=== PATIENT | female | born 1965 | race Caucasian/White ===

== ENCOUNTER 2016-10-21 12:15 | Emergency (ER) | payer SELFPAY ==
[~2016-10-21] VITALS: Ht 170.2 cm; Wt 76.2 kg
[~2016-10-21 12:15] MED LIST: LAMO100T PO; SERT100T PO
--- NOTE | 2016-10-21 13:39 | PHYS DOC ---
Past Medical History Past Medical History: Anxiety, Bipolar, Depression, Hypothyroid Past Surgical History: , Other Additional Past Surgical Histo: extra heart valve closure, bilat carpal tunnel release Alcohol Use: None Drug Use: None Adult General Chief Complaint Chief Complaint: FLU SYMPTOM HPI HPI Patient is a 51 year old female who presents with 1 week of cough, dyspnea, myalgia, chills, rhinorrhea, and fatigue. She denies chest pain, hemoptysis, leg pain or swelling, orthopnea. She did have nausea and vomiting at the beginning of her illness that has resolved. She denies diarrhea or bloody stools. She denies dysuria. Review of Systems Review of Systems Constitutional: Has fever and chills [] Eyes: Denies change in visual acuity, redness, or eye pain [] HENT: Denies sore throat [] Respiratory: Has cough and shortness of breath [] Cardiovascular: No additional information not addressed in HPI [] GI: Denies abdominal pain, bloody stools or diarrhea [] : Denies dysuria or hematuria [] Musculoskeletal: Denies back pain or joint pain [] Integument: Denies rash or skin lesions [] Neurologic: Denies headache, focal weakness or sensory changes [] Endocrine: Denies polyuria or polydipsia [] Allergies Allergies Allergies Coded Allergies Type Severity Reaction Last Updated Verified No Known Drug Allergies 03/25/15 No Physical Exam Physical Exam Constitutional: Well developed, well nourished, no acute distress, non-toxic appearance. [] HENT: Normocephalic, atraumatic, bilateral external ears normal, oropharynx moist, no oral exudates, nose normal. [] Eyes: PERRLA, EOMI, conjunctiva normal, no discharge. [] Neck: Normal range of motion, supple, no stridor. [] Cardiovascular:Heart rate regular rhythm [] Lungs & Thorax: Bilateral breath sounds clear to auscultation [] Abdomen: Bowel sounds normal, soft, no tenderness. [] Skin: Warm, dry, no erythema, no rash. [] Back: No tenderness, no CVA tenderness. [] Extremities: No tenderness, ROM intact, no edema. [] Neurologic: Alert and oriented X 3, normal motor function, normal sensory function, no focal deficits noted. [] Psychologic: Affect normal, judgement normal, mood normal. [] Current Patient Data Vital Signs Vital Signs Date Time Temp Pulse Resp B/P Pulse Ox O2 Delivery O2 Flow Rate FiO2 10/21/16 12:44 98.0 79 18 130/81 95 Room Air 98.0 Radiology/Procedures Radiology/Procedures Chest xray as interpreted by me with no acute cardiopulmonary disease process Course & Med Decision Making Course & Med Decision Making Pertinent Labs and Imaging studies reviewed. (See chart for details) Discussed symptomatic care for likely viral illness with concern for influenza. Return precautions given. She understands and agrees with plan. Dragon Disclaimer Dragon Disclaimer This electronic medical record was generated, in whole or in part, using a voice recognition dictation system. Departure Departure Impression: Primary Impression: Upper respiratory infection, viral Disposition: HOME, SELF-CARE Condition: STABLE Referrals: JUDITH TORRES MD (PCP) Patient Instructions: Influenza, Adult, [id number] Additional Instructions: Follow-up with your primary care doctor. Return for any concerns. Jeremy GRAY MD Oct 21, 2016 13:39
[2016-10-21 13:45] VITALS: BP 125/76
--- NOTE | 2016-10-21 14:18 | RAD ---
EXAM: CHEST 2 VIEWS INDICATION: Cough, congestion COMPARISON: 05/20/2011 TECHNIQUE: PA and lateral chest radiographs FINDINGS: The cardiomediastinal silhouette is within normal limits. The lungs are clear bilaterally. The costophrenic sulci are clear and well demarcated bilaterally. IMPRESSION: No radiographic evidence of an acute cardiopulmonary abnormality.
== END 2016-10-21 13:45 | disposition home or self-care (01) ==
LOC: ER 12:15
DX: J06.9 Acute upper respiratory infection, unspecified (principal); E03.9 Hypothyroidism, unspecified; F31.9 Bipolar disorder, unspecified
CPT/HCPCS: 71020; 99284

== ENCOUNTER 2017-11-30 16:23 | Emergency (ER) | payer OTHER ==
[2017-11-30] MEDS: KETOROLAC 60 MG/2 ML INJ. IM (17:56)
== END 2017-11-30 18:16 | disposition home or self-care (01) ==
LOC: ER 18:16
DX: M54.5 Low back pain (principal); F31.9 Bipolar disorder, unspecified; E03.9 Hypothyroidism, unspecified
CPT/HCPCS: 96372; 99283; J1885

== ENCOUNTER → 2018-04-28 | Outpatient (CLI) | payer OTHER ==
[2017-11-30 17:31] VITALS: BP 100/55
[~2018-04-28] MED LIST changes: +CYCL10TA2 PO; +TRAM50TA PO
--- NOTE | 2018-04-28 15:50 | RAD ---
CT of the chest without contrast, 04/28/2018: HISTORY: Follow-up lung nodule Noncontrast scans were obtained as requested and compared to a study from 08/05/2012. There is an unchanged 4 mm nodule in the left apex. There are a few scattered linear parenchymal opacities compatible with scars. No new pulmonary nodule or mass is seen. There is no evidence of pleural fluid. No mediastinal adenopathy is seen. There is a trace amount of pericardial fluid, similar to that seen on the previous study. There are mild scattered spurs in the spine. IMPRESSION: 1. Unchanged tiny left apical nodule. Its stability suggests a benign etiology. 2. Mild pulmonary scarring. 3. No acute abnormality is detected. PQRS Compliance Statement: One or more of the following individualized dose reduction techniques were utilized for this examination: 1. Automated exposure control 2. Adjustment of the mA and/or kV according to patient size 3. Use of iterative reconstruction technique Electronically signed by: Ashish Christie MD (04/28/2018 3:47 PM) [facility]
== END | disposition home or self-care (01) ==
LOC: CT 10:24
PROVIDERS: ATTEND Internal Medicine
DX: R91.1 Solitary pulmonary nodule (principal); R91.8 Other nonspecific abnormal finding of lung field; E03.9 Hypothyroidism, unspecified
CPT/HCPCS: 71250

== ENCOUNTER 2018-07-30 12:51 | Emergency (ER) | payer OTHER ==
[~2018-07-30] VITALS: Ht 170.2 cm; Wt 85.3 kg
[2018-07-30 13:21] VITALS: BP 108/62
--- NOTE | 2018-07-30 14:04 | RAD ---
RIGHT SHOULDER , 3 VIEWS Clinical Indication: PATIENT SAID SHE ROLLDED OVER IN BED ABOUT 1-2 WEEKS AGO AND FELT A POP IN SHOULDER. SHE SAYS PAIN HAS BEEN GETTING WORSE WELL MOBILITY. SHE IS UNABLE TO ABDUCT OR EXTEND ARM OVER HEAD DUE TO PAIN. PAIN IS ANTERIOR CORACOID PROC AREA Comparison: None. Findings: There is no acute fracture or dislocation. The acromioclavicular and glenohumeral joints are intact. The visualized lung is clear. There is no evidence of a displaced rib fracture. There is no soft tissue abnormality. IMPRESSION: No acute fracture or dislocation. Electronically signed by: Juan R Proctor MD (07/30/2018 2:01 PM) [id number]
[2018-07-30] MEDS ORDERED: NAPR-695 PO (14:13)
--- NOTE | 2018-07-30 14:13 | PHYS DOC ---
Past Medical History Past Medical History: Anxiety, Bipolar, Depression, Hypothyroid Past Surgical History: , Other Additional Past Surgical Histo: extra heart valve closure, bilat carpal tunnel release Alcohol Use: None Drug Use: None Adult General Chief Complaint Chief Complaint: SHOULDER INJURY HPI HPI Patient is a 53 year old female who presents to the emergency room with complaints of right shoulder pain for the last week. Patient states that while she was in bed she felt a sharp pop in her shoulder. Since that injury she has had decreased range of motion of her right shoulder. She currently reports her pain is 9 out of 10 on the pain scale she has been taking Tylenol PM for relief of her pain with little reduction of her symptoms. Patient denies any numbness, tingling, or weakness of her hand. Review of Systems Review of Systems Constitutional: Denies fever or chills [] Musculoskeletal: See history of present illness Integument: Denies rash or skin lesions [] Neurologic: Denies focal weakness or sensory changes [] Complete systems were reviewed and found to be within normal limits, except as documented in this note. Current Medications Current Medications Current Medications Medications (Trade) Dose Ordered Sig/Segun Start Time Stop Time Status Last Admin Dose Admin Acetaminophen/ Hydrocodone Bitart (Lortab 5/325) 1 tab 1X ONCE 07/30/18 13:45 07/30/18 13:46 DC 07/30/18 14:25 1 TAB Allergies Allergies Allergies Coded Allergies Type Severity Reaction Last Updated Verified No Known Drug Allergies 03/25/15 No Physical Exam Physical Exam Constitutional: Well developed, well nourished, no acute distress, non-toxic appearance. [] HENT: Normocephalic, atraumatic, bilateral external ears normal, nose normal. [] Eyes: conjunctiva normal, no discharge. [] Neck: Normal range of motion Skin: Warm, dry, no erythema, no rash. [] Extremities: R anterior shoulder tenderness to palpation, limited extension and abduction of R shoulder due to pain, no cyanosis, no clubbing, no edema. [] Neurologic: Alert and oriented X 3, normal motor function, normal sensory function, no focal deficits noted. [] Psychologic: Affect normal, judgement normal, mood normal. [] Current Patient Data Vital Signs Vital Signs Date Time Temp Pulse Resp B/P (MAP) Pulse Ox O2 Delivery O2 Flow Rate FiO2 07/30/18 14:25 16 99 Room Air 07/30/18 13:21 97.7 68 108/62 (77) 97.7 EKG EKG [] Radiology/Procedures Radiology/Procedures PROCEDURE: SHOULDER 2+V RIGHT RIGHT SHOULDER , 3 VIEWS Clinical Indication: PATIENT SAID SHE ROLLDED OVER IN BED ABOUT 1-2 WEEKS AGO AND FELT A POP IN SHOULDER. SHE SAYS PAIN HAS BEEN GETTING WORSE WELL MOBILITY. SHE IS UNABLE TO ABDUCT OR EXTEND ARM OVER HEAD DUE TO PAIN. PAIN IS ANTERIOR CORACOID PROC AREA Comparison: None. Findings: There is no acute fracture or dislocation. The acromioclavicular and glenohumeral joints are intact. The visualized lung is clear. There is no evidence of a displaced rib fracture. There is no soft tissue abnormality. IMPRESSION: No acute fracture or dislocation. [] Course & Med Decision Making Course & Med Decision Making Pertinent Labs and Imaging studies reviewed. (See chart for details) Dx: R shoulder strain xray of R shoulder was negative for any acute fx or dislocation. Prescription written for naproxen 375 mg BID prn pain. Pt was placed in sling, encouraged to exercise shoulder to prevent frozen shoulder. Follow up with Dr. Agudelo for further evaluation as a rotator cuff tear may be possible. Return to ER if symptoms worsen. Patient verbalized an understanding of home care, medications, follow-up, and return to ED instructions and was in agreement with the plan of care. Staff Physician Addendum: I was working in the ER during the course of this patient's visit. I was available for consultation as needed, but I was not directly involved in the care of this patient. [] Dragon Disclaimer Dragon Disclaimer This electronic medical record was generated, in whole or in part, using a voice recognition dictation system. Departure Departure Impression: Primary Impression: Strain of shoulder, right Disposition: 01 HOME, SELF-CARE Condition: STABLE Referrals: JUDITH TORRES MD (PCP) COLE AGUDELO MD Patient Instructions: Shoulder Sprain Additional Instructions: Fill prescription and use as directed. Wear the sling provided as needed for comfort, recommend early mobilization to prevent frozen shoulder. Follow up with Dr. Agudelo for further evaluation and treatment, return to the ER if your symptoms worsen. Scripts Naproxen (NAPROXEN) 375 Mg Tablet 1 TAB PO BID for 10 Days, #20 TAB 0 Refills Prov: TWYLA JUSTICE APRN 07/30/18 Problem Qualifiers Primary Impression: Strain of shoulder, right Encounter type: initial encounter Qualified Codes: S46.911A - Strain of unspecified muscle, fascia and tendon at shoulder and upper arm level, right arm , initial encounter TWYLA JUSTICE APRN Jul 30, 2018 14:13 SADAF EMMANUEL MD Jul 31, 2018 06:19
[2018-07-30] MEDS: HYDROcodone/APAP 5/325MG 1 TAB TABLET PO ONE (14:25)
== END 2018-07-30 14:29 | disposition home or self-care (01) ==
LOC: ER 12:51
DX: S46.911A Strain of unspecified muscle, fascia and tendon at shoulder and upper arm level, right arm, initial encounter (principal); E03.9 Hypothyroidism, unspecified; F31.9 Bipolar disorder, unspecified; X50.9XXA Other and unspecified overexertion or strenuous movements or postures, initial encounter; Y93.89 Activity, other specified; Y92.89 Other specified places as the place of occurrence of the external cause; Y99.8 Other external cause status
CPT/HCPCS: 73030; 99283

== ENCOUNTER → 2020-03-31 | Outpatient (CLI) | payer OTHER ==
[~2020-03-31] MED LIST changes: -LAMO100T PO; +LAMO100T8 PO; +NAPR-695 PO
--- NOTE | 2020-03-31 11:57 | RAD ---
CT CHEST WO CONTRAST INDICATION: Reason: LUNG NODULE / Spl. Instructions: / History: . COMPARISON STUDY: 04/28/2018. 08/05/2012 TECHNIQUE: Unenhanced axial images were obtained through the lungs and upper abdomen. Coronal and sagittal multiplanar reconstructions were also obtained. PQRS compliance statement: One or more of the following individualized dose reduction techniques were utilized for this examination: 1. Automated exposure control 2. Adjustment of the mA and/or kV according to patient size 3. Use of iterative reconstruction technique FINDINGS: Lungs and Airways: No pulmonary mass or consolidation. Left apical 5 mm nodule is stable since 2011 and presumed benign. Normal central airways. Pleura: The pleural spaces are normal. Heart and Mediastinum: The visualized thyroid gland is normal in size and attenuation. No axillary or supraclavicular lymphadenopathy. No mediastinal, hilar or retrocrural lymphadenopathy. Normal cardiac size. Mild pericardial fluid, likely physiologic. The great vessels of the thorax are normal. Abdomen: The visualized abdominal organs demonstrate no abnormality. Bones and Soft Tissues: Degenerative changes of the spine. IMPRESSION: 1. Small left apical nodule demonstrates long-term stability and is presumed benign. 2. No pulmonary mass or consolidation. No thoracic lymphadenopathy. Electronically signed by: Gregory Strong MD (03/31/2020 11:54 AM) [id number]
== END | disposition home or self-care (01) ==
LOC: CT 08:47
PROVIDERS: ATTEND Internal Medicine
DX: R91.1 Solitary pulmonary nodule (principal)
CPT/HCPCS: 71250